=== PATIENT | female | born 1995 | race Caucasian/White ===

== ENCOUNTER 2020-02-27 23:16 | Emergency (ER) | payer OTHER, MEDICAID ==
[~2020-02-27] VITALS: Ht 172.7 cm; Wt 58.1 kg
[2020-02-27 23:31] VITALS: Ht 172.7 cm; Wt 58.1 kg
[2020-02-28 01:20] VITALS: BP 104/68
== END 2020-02-28 01:20 | disposition home or self-care (01) ==
LOC: ED 23:16
DX: S30.1XXA Contusion of abdominal wall, initial encounter (principal); V48.6XXA Car passenger injured in noncollision transport accident in traffic accident, initial encounter; Y93.I9 Activity, other involving external motion; Y92.488 Other paved roadways as the place of occurrence of the external cause; Y99.8 Other external cause status
CPT/HCPCS: Q0092